=== PATIENT | female | born 1990 | race Caucasian/White ===

== ENCOUNTER 2018-10-13 12:11 | Emergency (ER) | payer BC, MEDICAID ==
[~2018-10-13] VITALS: Ht 162.6 cm; Wt 72.0 kg
[~2018-10-13 12:11] MED LIST: ERYT1OIN6 LEFT EYE
[2018-10-13 12:47] VITALS: BP 113/68; PULSE 78; RESP 18; Ht 162.6 cm; Wt 72.0 kg
== END 2018-10-13 14:18 | disposition home or self-care (01) ==
LOC: FTE 12:11
DX: H10.022 Other mucopurulent conjunctivitis, left eye (principal)
CPT/HCPCS: 99283